=== PATIENT | male | born 1970 | race Caucasian/White ===

== ENCOUNTER 2022-12-16 02:14 | Day surgery (SDC) | payer OTHER, SELFPAY ==
[2022-12-06 14:03] VITALS: BMI 32.3
--- NOTE | 2022-12-06 14:09 | PC.NURSE ---
Report to the Outpatient Waiting Room, entrance under the green pavilion located off [facility], at time 0830 on date 12/16/22. Planned Procedure Time: 1030. Time changes happen often and if your time is changed the preop area will call you the afternoon before. - You and your visitor will be asked to self-screen and do not enter if you have any COVID symptoms. - A mask is optional within the hospital at this time. Patients may have clear liquids (water, carbonated beverages, clear teas, apple juice) until 3 hours prior to surgery with a maximum of 20 ounces. - No food from midnight until time of surgery Take the following medications with a SIP of water the morning of surgery: INHALERS, BUPROPION DO NOT STOP ANY OF YOUR OTHER PRESCRIPTION MEDICATIONS PRIOR TO SURGERY ?EXCEPT THE FOLLOWING Medications to discontinue per physician: ELIQUIS Date to take last dose: 3 DAYS PRE-OP PER DR. HAUSER Please no make-up, nail irish, hairspray, perfume, deodorant, or body powder the day of surgery. No jewelry (including any body piercings) or valuables the day of surgery, leave them at home. Please take a shower or bath the night before, or the morning of, surgery with an antibacterial soap (HIBICLENS). Wear comfortable, loose fitting clothing. - Jewelry must be removed prior to entering the operating room. Rings and piercings that are not removed may be cut off. - The hospital will not accept responsibility for valuables. - Please leave all valuables, including medications, at home the day of surgery. If you are going home after surgery, a licensed spike driver must drive you home. - NO public transportation without another adult if you receive anesthesia. - We recommend that an adult stay with you for 24 hours following discharge. - We also recommend that you do not drive, make important decision, drink alcoholic beverages, or take any drugs that were not prescribed by your health care provider for at least 24 hours after your discharge time. Follow any additional instructions given to you from your surgeon. If you or anyone in your household have experienced Covid symptoms in the past week, please notify your surgeon or the nurse liaison at the phone number below for possible testing. Telephone instructions given to PT - ANY CH and asked if any additional questions and then verbalized understanding. Patient advised to call surgeon office or pre surgery nurse liaison [phone] if any additional questions.
--- NOTE | 2022-12-16 09:07 | ECG_ITS ---
Measurements Intervals [place] Rate: 82 P: 60 WV: 192 QRS: 7 QRSD: 82 T: 57 QT: 340 QTc: 399 Interpretive Statements SINUS RHYTHM CONSIDER INFERIOR INFARCT, AGE INDETERMINATE ABNORMAL ECG NO PREVIOUS ECG AVAILABLE FOR COMPARISON Electronically Signed On 12-16-2022 10:24:57 CDT by Yunier Coffey D.O.
[2022-12-16 09:50] VITALS: BP 121/79; PULSE 96; RESP 14; TEMP 36.6; O2SAT 99
[2022-12-16] MEDS: LACTATED RINGERS 1,000 ML 30 ML IV CONT ×2 (09:50→11:49)
[2022-12-16] MEDS: KETOROLAC 15 MG/ML VIAL (*BKC) IV PUSH (09:50)
[2022-12-16] MEDS: ACETAMINOPHEN 500 MG TABLET 1000 MG PO (09:50)
--- NOTE | 2022-12-16 10:00 | WPDANESEPPF ---
Anes - Initial Pre Proc Eval Procedure: Operation Date: 12/16/22 10:30 Proposed Procedures p Open Umbilical Hernia Repair with Mesh - Yury Bass MD Date/Time: 12/16/22 10:00 Surgeon: Yury Bass MD Pre Op Diagnosis: Incarcerated Umb Hernia Patient Data Age: 52 Gender: M Height: 1.85 m Weight: 111.15 kg Allergies Allergy/AdvReac Type Severity Reaction Status Date / Time No Known Allergies Allergy Verified 12/06/22 14:02 Home Medications Medication Instructions Recorded Confirmed Type albuterol sulfate 90 mcg/actuation 1 puff inhalation Q4H PRN 11/21/22 12/09/22 History aerosol inhaler Bronchospasm apixaban 5 mg tablet (Eliquis) 5 mg PO BID 11/21/22 12/09/22 History bupropion HCl 150 mg tablet,12 hr 150 mg PO BID #60 tabs 11/21/22 12/09/22 Rx sustained-release losartan 50 mg tablet 50 mg PO DAILY 11/21/22 12/09/22 History tiotropium bromide 2.5 2 puff inhalation DAILY 11/21/22 12/09/22 History mcg/actuation mist for inhalation (Spiriva Respimat) fluticasone 100 mcg-salmeterol 50 1 inh inhalation DAILY 12/06/22 12/09/22 History mcg/dose blistr powdr for inhalation (Advair Diskus) Patient hx anesthesia problems: none Family hx anesthesia problems: none Results Review: All pre-operative results and documents have been reviewed as part of the pre-operative evaluation. [facility] Past Medical History Medical History Asthma Atrial fibrillation Broken ankle Right Chronic anticoagulation COPD (chronic obstructive pulmonary disease) Emphysema lung History of syncope HTN (hypertension) with goal to be determined Pacemaker Umbilical hernia without mention of obstruction or gangrene Surgical History Surgical History History of pacemaker 2020 Previous back surgery Laser spine surgery 2018 Family History Family History Father Diabetes mellitus Mother Breast cancer Social History Social History Smoking packs per day: 1 Smoking cigarettes per day: 20.0 Years smoked: 35 Smoking pack-years: 35.00 Smoking status: Current every day smoker Tobacco type: cigarettes Alcohol intake: current Drinks per week: 24 Substance use: current Substance use type: marijuana Living arrangements: with family Additional living arrangements comments: BROTHER Spiritual care concerns: No Anes - Eval Final PreProcedure Day of Procedure 12/16/22 10:00 Patient weight: obese Heart: regular rate and rhythm Lungs: clear to auscultation Airway: Mallampati scale class II and special considerations poor dentition Neurological: alert and oriented Last oral intake: 4 hours (coffee with cream) ASA classification: IV Emergent: no Anesthetic plan: proceed Anesthesia type and monitoring: general ETT and standard monitoring Results Review: All pre-operative results and documents have been reviewed as part of the pre-operative evaluation. Informed Consent: The patient's anesthetic plan and its attendant risks and benefits were discussed with the patient/family/POA. Questions were solicited and answers provided to the satisfaction of the patient/family/POA.
[2022-12-16] MEDS: ONDANSETRON INJ 4 MG/2 ML VIAL IV PUSH (10:04)
[2022-12-16] MEDS: FAMOTIDINE 20 MG/2 ML VIAL IV PUSH (10:04)
--- NOTE | 2022-12-16 10:29 | WPDHPUPDATE1 ---
History and Physical Update Update Date/Time: 12/16/22 10:29 History and Physical has been reviewed, including an updated exam of the patient. There are NO changes in the patient's condition. Risks, benefits, and alternatives have been discussed and questions answered. Patient agrees to proceed with procedure.
[2022-12-16] MEDS: ceFAZolin 2 GM/D5W 50 ML 2 GM/50 ML BAG IVPB (10:50)
[2022-12-16] MEDS: BUPivacaine HCL 0.5% PF 30 ML VIAL 20 ML INFILTRATE (11:07)
[2022-12-16] MEDS: LIDO 1%/EPINEPHRINE 1:100,000 20 ML VIAL INFILTRATE (11:08)
[2022-12-16 11:49] VITALS: BP 129/80; PULSE 87; RESP 13; TEMP 36.7; O2SAT 100
--- NOTE | 2022-12-16 11:55 | W.PM.PROC2 ---
Procedure Note - Detailed Date of Procedure 12/16/22 Pre-op Diagnosis Incarcerated Umb Hernia Post-op Diagnosis Same Procedure Performed Open incarcerated umbilical hernia repair without mesh. Surgeon Yury Bass MD Vat Overhauler Jovanny ABREU Anesthesia General Indications Patient is a 52-year-old gentleman who has had a incarcerated umbilical hernia which is starting to enlarge and cause him symptoms of discomfort. He presents now for elective repair. Findings Patient had incarcerated omentum within the umbilical hernia sac. The omentum was viable. I did resect the small portion of omentum in the hernia sac. The defect at the fascial level was only 1cm in diameter. Description of Procedure After informed consent was obtained patient brought to the operating room was placed supine position and general endotracheal anesthesia was administered. The abdomen was then prepped draped usual sterile fashion. A time-out was then performed correctly identifying the patient as well as procedure to be performed. He was given perioperative IV antibiotics. Made a curved incision and along the lower portion of the umbilical fold. Dissection carried down through the dermis of the skin with a scalpel and then electrocautery was used to dissect down to the umbilical stalk and hernia sac. With blunt clamp dissection I encircled the umbilical stalk and then disconnected the overlying dermis from the hernia sac with electrocautery. I then opened the hernia sac to identify incarcerated viable omentum. I then resected the portion of the omentum which was incarcerated within the hernia sac and removed the hernia sac. This is all done electrocautery. The remaining small portion of omentum was reduced back into the abdomen through the fascial defect which measured only 1cm in diameter. Given the small defect I did not feel placement of mesh was necessary. I then proceeded to close the defect primarily with multiple interrupted 0 Ethibond sutures. The edges of the fascia came together easily without any tension. I then injected local anesthetic mixture consisting of 1% lidocaine mixed with 0.5% Marcaine around the fascial edges and the subcutaneous tissues. The inverted umbilicus was recreated by on the dermis of the umbilicus to the deeper fascial structures utilizing 3-0 Vicryl suture. Subcutaneous tissues were then closed utilizing interrupted 2-0 Vicryl sutures and then a portion of the excess stretched out umbilical skin was then resected utilizing a scalpel. This piece of skin was discarded. I then approximate the skin edges utilizing 3-0 Vicryl sutures and the skin edges were approximated lies in a running subcuticular 4 Monocryl suture. The incision was then cleaned and then skin glue and a pressure dressing was applied to the umbilicus. An abdominal binder was placed as well. The patient tolerated the procedure well no complications. All sponges, needles, and instrument counts were correct at the end procedure. EBL was _5__cc. The patient was awakened and taken to recovery in stable and satisfactory condition. Implants None Estimated Blood Loss 5 Drains No Packing No Pathology None sent Complications No immediate complications Condition Stable Disposition PACU [facility] Billing Surgery - Charge Forward: Surgery Billing
[2022-12-16 12:00] VITALS: BP 120/80; PULSE 94; RESP 16; O2SAT 95
[2022-12-16 12:15] VITALS: BP 114/81; PULSE 90; RESP 18; O2SAT 95
[2022-12-16 12:23] VITALS: BP 106/54; PULSE 84; RESP 18
[2022-12-16 12:50] VITALS: BP 122/88; PULSE 87; RESP 16
== END 2022-12-16 13:06 | disposition home or self-care (01) ==
PROVIDERS: PCP Internal Medicine; Visit Provider Surgery
PROC: (CPT 49592; principal; 2022-12-16 10:30)
DX: K42.0 Umbilical hernia with obstruction, without gangrene (principal); I48.91 Unspecified atrial fibrillation; J43.9 Emphysema, unspecified; I10 Essential (primary) hypertension; F17.210 Nicotine dependence, cigarettes, uncomplicated; F12.90 Cannabis use, unspecified, uncomplicated; E66.9 Obesity, unspecified; Z68.32 Body mass index [BMI] 32.0-32.9, adult; Z95.0 Presence of cardiac pacemaker; Z79.51 Long term (current) use of inhaled steroids; Z79.01 Long term (current) use of anticoagulants
CPT/HCPCS: 49592; 93005; A9270; J0330; J0690; J1100; J1885; J2405; J2704; J3010; J7120

== ENCOUNTER 2023-11-14 10:33 | Emergency (ER) | payer OTHER, SELFPAY ==
--- NOTE | ~2023-11-14 | XR_ITS ---
EXAMINATION: XR knee LT min 4V DATE: 11/14/2023 11:42 INDICATION: Left knee swelling. TECHNIQUE: 5 views of left knee were obtained. COMPARISON: None. FINDINGS: Alignment is normal. No fracture. The patella is bipartite. There is mild osteoarthritis of patellofemoral compartment. There is a moderate-sized knee joint effusion. IMPRESSION: 1. Mild left knee osteoarthritis. 2. Moderate-sized left knee joint effusion. Reviewed, dictated and finalized at location A.
[2023-11-14 10:37] VITALS: BP 123/47; PULSE 109; RESP 16; TEMP 36.4; O2SAT 97
--- NOTE | 2023-11-14 10:44 | ED.EXTPRO ---
HPI - Extremity Problem General Chief complaint: Extremity Problem,Nontraumatic Stated complaint: left knee issues Time Seen by Provider: 11/14/23 11:28 Source: patient and RN notes reviewed Mode of arrival: ambulatory Limitations: no limitations History of Present Illness HPI Narrative: 53 year old male presents with concern for left knee swelling, pain. Reports symptoms have been present for about a week. Reports pain with bending, straightening and worsening pain with weight-bearing. Reports the swelling is getting worse. He denies injury MD Complaint: extremity swelling Related Data Allergies Allergy/AdvReac Type Severity Reaction Status Date / Time No Known Allergies Allergy Verified 07/15/23 15:35 Review of Systems Review of Systems: CONSTITUTIONAL: Denies malaise, chills, sweats, or fever. SKIN: Denies rash or itching, open skin, laceration, abrasion, redness, warmth MUSCULOSKELETAL: Reports left knee pain and swelling NEUROLOGIC: Denies numbness, weakness All systems reviewed & are unremarkable except as noted in HPI and below PMFSH Past Medical History Medical History Asthma Atrial fibrillation Broken ankle Right Chronic anticoagulation Chronic bronchitis COPD (chronic obstructive pulmonary disease) Emphysema lung History of syncope HTN (hypertension) with goal to be determined Pacemaker Umbilical hernia without mention of obstruction or gangrene Surgical History Surgical History History of pacemaker 2020 Hx of umbilical hernia repair Open incarcerated umbilical hernia repair without mesh on 12/16/22 SAW Previous back surgery Laser spine surgery 2019 Family History Family History Father Diabetes mellitus Mother Breast cancer Social History Social History Smoking packs per day: 1 Smoking cigarettes per day: 20.0 Years smoked: 35 Smoking pack-years: 35.00 Smoking status: Current every day smoker Tobacco type: cigarettes Alcohol intake: current Drinks per week: 24 Substance use: current Substance use type: marijuana Do You Feel Safe in your Home?: Yes Lack of Transportation: No Lack of Food: Never True Current Housing: I Have Housing Concerned About Future Housing: No Difficulty Paying Gas/Electric Bills: No Difficulty Paying for Meds: No Currently Unemployed: YES Education: High School Diploma/GED Difficulty w/ Childcare or Family Care: No Living arrangements: with family Additional living arrangements comments: BROTHER Spiritual care concerns: No Comments At time of signature, agree with nursing past medical, surgical, social and family history. There is no relevant family history pertinent to the presenting complaint Exam Narrative: GENERAL: Well-appearing, well-nourished, and in no acute distress. HEAD: Normocephalic, atraumatic. EYES: PERRLA, conjunctivae clear NECK: Supple. CHEST: Speaks in full sentences. No respiratory distress. HEART: Regular rate and rhythm. Normal and equal peripheral pulses. EXTREMITIES: Left knee has grossly normal strength and sensation, limited range of motion. Moderate anterior edema with mild erythema, no ecchymosis. Normal sensation with sensitivity to light touch and pain. Anterior superior tenderness. No open wounds, no skin tenting, no devitalized tissue or atrophy, no trophic changes, no obvious deformity, alignment normal, nearby joints and structures intact. Distal pulses palpable and equal bilaterally, skin warm, dry, pink. Capillary refill less than 3 seconds. SKIN: Warm, dry, no rash. NEURO: Alert and oriented x3. PSYCH: Normal mood and affect Course Course Emergency Course: Patient is aware of diagnosis, understands and agrees to treatment plan. Anticipatory guidance given. P
== END 2023-11-14 12:05 | disposition home or self-care (01) ==
PROVIDERS: Emergency Provider Nurse Practitioner; PCP Internal Medicine
DX: M25.462 Effusion, left knee (principal); F17.210 Nicotine dependence, cigarettes, uncomplicated; F12.90 Cannabis use, unspecified, uncomplicated; I48.91 Unspecified atrial fibrillation; J44.9 Chronic obstructive pulmonary disease, unspecified; I10 Essential (primary) hypertension; Z95.0 Presence of cardiac pacemaker
CPT/HCPCS: 73564; 99213; G0463

== ENCOUNTER 2023-12-05 14:22 | Emergency (ER) | payer OTHER, SELFPAY ==
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
[2023-12-05 14:34] VITALS: BP 125/90; PULSE 98; RESP 16; TEMP 36.1; O2SAT 97
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
== END 2023-12-05 15:26 | disposition home or self-care (01) ==
LOC: EXPBETH 14:27
PROVIDERS: Emergency Provider Nurse Practitioner Family
DX: S20.211A Contusion of right front wall of thorax, initial encounter (principal); V49.9XXA Car occupant (driver) (passenger) injured in unspecified traffic accident, initial encounter; I48.91 Unspecified atrial fibrillation; J44.9 Chronic obstructive pulmonary disease, unspecified; I10 Essential (primary) hypertension; Z95.0 Presence of cardiac pacemaker
CPT/HCPCS: 71046; 71100; 99213; G0463

== ENCOUNTER 2023-12-14 11:04 | Emergency (ER) | payer OTHER, SELFPAY ==
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
--- NOTE | ~2023-12-14 | CT_ITS ---
EXAMINATION: CTA chest PE protocol DATE: 12/14/2023 14:12 INDICATION: Chest pain. Elevated d-dimer. TECHNIQUE: Computed tomography angiography (CTA) of the chest was performed with 100 mL Omnipaque-350 intravenous contrast timed to evaluate the pulmonary arteries. Coronal maximum intensity projection 3D-reconstructions were created by the technologist. Automated exposure control and iterative reconst ruction technique were employed. Exam dose: 911.84 mGy-cm total exam DLP. COMPARISON: 12/14/2023 portable AP chest 12/05/2023 PA and lateral chest and right RIBS FINDINGS: There is diagnostic contrast enhancement of the pulmonary arteries and no evidence of pulmo nary embolism. There is thoracic aortic, great vessel coronary calcification. No thoracic aortic aneurysm or dissect ion is detected. No hilar or mediastinal mass lesion or lymphadenopathy is detected. Heart size is normal. Left transvenous pacemaker device with right atrial and right ventricular leads . No pericardial or pleural effusion. Minimal atelectasis at the left lung base, left lower lobe. Otherwise no pulmonary infiltrate or cons olidation or suspicious pulmonary mass lesion. Normal morphology of the adrenal glands. Included upper abdominal structures are unremarkable. No suspicious osteolytic or osteoblastic lesions. IMPRESSION: No evidence of pulmonary embolism Reviewed, dictated and finalized at [facility]. Reviewed, dictated and finalized at [facility].
--- NOTE | 2023-12-14 11:15 | ECG_ITS ---
Test Date: 2023-12-14 11:14:16 Measurements Intervals [place] Rate: 92 P: 74 SD: 189 QRS: 38 QRSD: 94 T: 62 QT: 350 QTc: 435 Interpretive Statements SINUS RHYTHM BASELINE WANDER- V5 NORMAL ECG No previous ECG available for comparison Electronically Signed On 12-14-2023 12:24:18 CDT by Yunier Coffey D.O.
[2023-12-14 11:16] VITALS: BP 127/84; PULSE 95; RESP 19; TEMP 36.6; O2SAT 95
[2023-12-14 11:50] LABS: Basophils Percent Auto 0.5 % (0.2-1.2); Eosinophils Absolute Auto 0.2 K/mm3 (0-0.3); Eosinophils Percent Auto 3.4 % (0-4.4); Hematocrit 42.4 % (42.0-52.0); Hemoglobin 14.6 g/dL (14.0-18.0); Immature Granulocyte Absolute 0.03 K/mm3 (0.00-0.031); Immature Granulocyte Percent A 0.5 % (0-0.5); Lymphocytes Absolute Auto 2.17 K/mm3 (0.9-3.2); Lymphocytes Percent Auto 33.3 % (18.3-44.2); Mean Corpuscular HGB Conc 34.4 g/dl (32-36); Mean Corpuscular Hemoglobin 31.8 pg (26-34); Mean Corpuscular Volume 92.4 fl (80-100); Mean Platelet Volume 9.3 fl (7.4-10.4); Monocytes Absolute Auto 0.4 K/mm3 (0.1-0.6); Monocytes Percent Auto 6.6 % (2.6-8.5); Neutrophils Absolute Auto 3.6 K/mm3 (1.3-6.7); Neutrophils Percent Auto 55.7 % (45.5-73.1); Platelet Count Result 244 k/mm3 (150-375); Red Blood Count 4.59 M/mm3 (4.6-6.20); Red Cell Distribution Width 11.9 % (11.5-14.5); White Blood Count 6.5 K/mm3 (4.5-10.0)
[2023-12-14 12:00] LABS: Prothrombin Time 13.6 Seconds (11.1-14.7)
[2023-12-14 12:01] LABS: Partial Thromboplastin Time 40.8 Seconds (22.3-36.8)
[2023-12-14 12:03] LABS: D Dimer 0.88 ug/mL (<0.48)
[2023-12-14 12:07] LABS: Alanine Aminotransferase 71 U/L (6-50); Albumin Level 4.1 g/dL (3.5-5.1); Alkaline Phosphatase 92 U/L (38-126); Anion Gap 8 mmol/L (4-12); Aspartate Amino Transferase 58 U/L (17-59); Bilirubin,Total 0.6 mg/dL (0.2-1.3); Blood Urea Nitrogen 12 mg/dL (9-20); Calcium 8.9 mg/dL (8.4-10.2); Carbon Dioxide 27 mmol/L (22-30); Chloride 99 mmol/L (98-107); Estimated CRCL calculation 125 ml/min; Estimated Glomerular Filt Rate > 60; Glucose 226 mg/dL (65-110); Magnesium 2.1 mg/dL (1.6-2.3); Potassium 4.1 mmol/L (3.4-5.0); Sodium 134 mmol/L (137-145)
[2023-12-14 12:15] LABS: Troponin I < 0.012 ng/mL (0.000-0.034)
[2023-12-14 12:44] VITALS: BP 100/87; PULSE 85; RESP 16; TEMP 36.7; O2SAT 95
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
[2023-12-14 14:53] VITALS: BP 134/76; PULSE 88; RESP 18; TEMP 36.7; O2SAT 100
== END 2023-12-14 14:56 | disposition home or self-care (01) ==
PROVIDERS: Emergency Provider Emergency Medicine; PCP Internal Medicine
DX: R07.89 Other chest pain (principal); I48.91 Unspecified atrial fibrillation; I10 Essential (primary) hypertension; J45.909 Unspecified asthma, uncomplicated; J43.9 Emphysema, unspecified; F17.210 Nicotine dependence, cigarettes, uncomplicated; Z95.0 Presence of cardiac pacemaker; Z79.01 Long term (current) use of anticoagulants; Z79.899 Other long term (current) drug therapy
CPT/HCPCS: 36415; 71045; 71275; 80053; 83735; 84484; 85025; 85380; 85610; 85730; 93005; 99284; Q9967